=== PATIENT | female | born 1980 | race Caucasian/White ===

== ENCOUNTER 2016-10-10 14:52 | Inpatient (IN) | payer MEDICAID ==
[~2016-10-10] VITALS: Ht 157.5 cm; Wt 83.6 kg
[2016-10-10 15:02] VITALS: Ht 157.5 cm; Wt 83.6 kg
[2016-10-10 15:05] VITALS: BP 122/63; PULSE 75; RESP 16
[2016-10-10] MEDS: LACTATED RINGER'S 1,000 ML IV SCH ×2 (15:28→17:30)
[2016-10-10] MEDS ORDERED: METHYLERGONOVINE 0.2 MG INJ IM PRN ×2 (15:30→22:00)
[2016-10-10] MEDS ORDERED: OXYTOCIN 30 UNITS/LR 500 ML IV PRN ×2 (15:30→22:00)
[2016-10-10] MEDS ORDERED: CEFAZOLIN 2 GM/50 ML (PMX) 50 ML IV SCH (15:30)
[2016-10-10] MEDS ORDERED: MISOPROSTOL 200 MCG TAB PR PRN ×2 (15:30→22:00)
[2016-10-10] MEDS ORDERED: CARBOPROST 250 MCG INJ IM PRN ×2 (15:30→22:00)
[2016-10-10] MEDS ORDERED: OXYTOCIN 30 UNITS/LR 500 ML IV SCH (15:30)
[2016-10-10 16:08] LABS: BASOPHILS % 0.1 % (0.0-2.0); EOSINOPHILS % 0.3 % (0.0-7.0); HEMATOCRIT 36.9 % (37.0-47.0); HEMOGLOBIN 12.4 g/dl (12.0-16.0); LYMPHOCYTES # 1.8 10^3/ul (0.8-2.9); LYMPHOCYTES % 23.7 % (15.0-51.0); MEAN CORPUSCULAR HEMOGLOBIN 31.7 pg (29.0-33.0); MEAN CORPUSCULAR HGB CONC 33.6 g/dl (32.0-37.0); MEAN CORPUSCULAR VOLUME 94.4 fl (82.0-101.0); MEAN PLATELET VOLUME 10.9 fl (7.4-10.4); MONOCYTE # 0.6 10^3/ul (0.3-0.9); MONOCYTES % 7.9 % (0.0-11.0); NEUTROPHILS % 67.2 % (39.0-77.0); PLATELET COUNT 170 10^3/UL (140-415); RED BLOOD COUNT 3.91 10^6/ul (4.20-5.40); RED CELL DISTRIBUTION WIDTH 12.5 % (11.5-14.5); WHITE BLOOD COUNT 7.6 10^3/ul (4.8-10.8)
[2016-10-10] MEDS ORDERED: ONDANSETRON 4 MG INJ IV STA (16:20)
[2016-10-10 16:24] LABS: INR 0.88; PARTIAL THROMBOPLASTIN TIME 26.9 Sec (25.0-35.0); PROTIME 11.9 Sec (12.2-14.2); PT RATIO 0.9
[2016-10-10] MEDS ORDERED: CITRIC ACID/NA CITRATE 30 ML CUP PO ONE (16:30)
--- NOTE | 2016-10-10 17:50 | HP ---
Date/Time of Note Date/Time of Note DATE: 10/10/16 TIME: 17:47 OB - History Hx of Present Chief Complaint: scheduled Estimated Due Date: Oct 17, 2016 : 4 Para: 2 Spontaneous : 1 Therapeutic : 0 Care: Good Care Ultrasounds: Normal mid trimester US Obstetrical Complications: Gestational Diabetes Past Family/Social History * Past Medical, Surgical, Family and Obstetric Histories reviewed from chart. GBS Status: Positive OB Admission Exam Vital Signs Vital Signs Vital Signs Date Time Temp Pulse Resp B/P Pulse Ox O2 Delivery O2 Flow Rate FiO2 10/10/16 15:05 98.9 75 16 122/63 Physical Exam HEENT: WNL Heart: Rhythm Normal Lungs: Clear, Equal Abdomen: WNL Extremities: Normal Reflexes: Normal Last 72 hours Lab Results CBC & BMP 10/10/16 15:28 OB Assessment/Plan Reason for admission: section Plan: Section Other plan: Bilateral Tubal Ligation ANDRES SWEENEY MD Oct 10, 2016 17:50
[2016-10-10] MEDS ORDERED: FENTAnyl 50 MCG/ML VIAL ONE (18:10)
[2016-10-10] MEDS ORDERED: morphine SULFATE/PF (10 MG/10 ML) INJ ONE (18:10)
[2016-10-10] MEDS ORDERED: PHENYLephrine (100 MCG/ML) 5ML SYG ONE (18:10)
[2016-10-10] MEDS ORDERED: OXYTOCIN 10 UNIT INJ ONE (18:10)
[2016-10-10] MEDS ORDERED: METOCLOPRAMIDE 10 MG INJ ONE (18:10)
--- NOTE | 2016-10-10 19:16 | SIPON ---
Date/Time of Note Date/Time of Note DATE: 10/10/16 TIME: 19:13 Operative Report Preoperative Diagnosis 39 weeks with previous c/s x2 Postoperative Diagnosis Same Operation/Procedure Performed Repeat LTC/S and BTL Surgeon: ANDRES SWEENEY MD assistant executive housekeeper: DEYSI ARMENTA MD Anesthesia Type: spinal Estimated Blood Loss: other (500 ml) Transfusion Required: no Specimens right and left Fallopian tubes Grafts/Implants: none Complications: no ANDRES SWEENEY MD Oct 10, 2016 19:15
[2016-10-10] MEDS ORDERED: LABETALOL HCL 20MG INJ IV PRN (20:30)
[2016-10-10] MEDS ORDERED: hydrALAzine 20 MG INJ IV PRN (20:30)
[2016-10-10] MEDS ORDERED: ALBUTEROL 0.083% (NEB) 2.5 MG/3 ML AMP HHN PRN (20:30)
[2016-10-10] MEDS ORDERED: IPRATROPIUM (NEB) 0.5 MG/2.5 ML AMP HHN PRN (20:30)
[2016-10-10] MEDS ORDERED: morphine 4 MG/ML VIAL IV PRN (20:30)
[2016-10-10] MEDS ORDERED: NALBUPHINE HCL (10 MG/1 ML) INJ IV PRN (20:30)
[2016-10-10] MEDS ORDERED: MEPERIDINE 25 MG INJ IV PRN (20:30)
[2016-10-10] MEDS ORDERED: EPHEDrine SULFATE 50 MG/5 ML SYG IV PRN (20:30)
[2016-10-10] MEDS ORDERED: DIPHENHYDRAMINE 50 MG INJ IV PRN ×2 (20:30)
[2016-10-10] MEDS ORDERED: TRIMETHOBENZAMIDE 100 MG/ML VIAL IM PRN ×2 (20:30)
[2016-10-10] MEDS ORDERED: ONDANSETRON 4 MG INJ IV PRN ×2 (20:30)
[2016-10-10] MEDS ORDERED: OXYCODONE/ACETAMINOPHEN (5/325) TAB PO PRN ×2 (20:30)
[2016-10-10] MEDS ORDERED: morphine 2 MG INJ IV PRN (20:30)
[2016-10-10] MEDS ORDERED: HYDROmorphONE (0.2 MG/ML) 10ML SYG IV PRN ×3 (20:30)
[2016-10-10] MEDS ORDERED: NALOXONE (0.4 MG/ML) INJ IV PRN (20:30)
[2016-10-10] MEDS ORDERED: FENTAnyl 50 MCG/ML VIAL IV PRN ×3 (20:30)
[2016-10-10] MEDS: KETOROLAC 30 MG INJ IV PRN (21:16)
[2016-10-10 22:00] VITALS: BP 117/67; PULSE 65; RESP 19
[2016-10-11] VITALS: BP 110/66; PULSE 62; RESP 18
[2016-10-11] MEDS: LACTATED RINGER'S 1,000 ML IV SCH ×3 (00:33→15:06)
[2016-10-11 04:00] VITALS: BP 96/61; PULSE 63; RESP 18
[2016-10-11 07:30] VITALS: BP 128/73; PULSE 69; RESP 18
--- NOTE | 2016-10-11 11:25 | QN ---
Documentation Comment No complaint Afebrile VSS Abdomen soft ND POD #1 Stable Ambulate Advance diet. ANDRES SWEENEY MD Oct 11, 2016 11:24
[2016-10-11 11:47] LABS: BASOPHILS % 0.2 % (0.0-2.0); EOSINOPHILS % 0.3 % (0.0-7.0); HEMATOCRIT 35.1 % (37.0-47.0); HEMOGLOBIN 12.1 g/dl (12.0-16.0); LYMPHOCYTES # 1.3 10^3/ul (0.8-2.9); MEAN CORPUSCULAR HEMOGLOBIN 33.2 pg (29.0-33.0); MEAN CORPUSCULAR HGB CONC 34.5 g/dl (32.0-37.0); MEAN CORPUSCULAR VOLUME 96.4 fl (82.0-101.0); MEAN PLATELET VOLUME 11.3 fl (7.4-10.4); MONOCYTE # 0.7 10^3/ul (0.3-0.9); MONOCYTES % 6.5 % (0.0-11.0); NEUTROPHILS % 79.4 % (39.0-77.0); PLATELET COUNT 163 10^3/UL (140-415); RED BLOOD COUNT 3.64 10^6/ul (4.20-5.40); RED CELL DISTRIBUTION WIDTH 12.4 % (11.5-14.5); WHITE BLOOD COUNT 10.2 10^3/ul (4.8-10.8)
[2016-10-11 12:18] VITALS: BP 126/65; PULSE 78; RESP 18
[2016-10-11 16:00] VITALS: BP 122/91; PULSE 65; RESP 19
[2016-10-11] MEDS: KETOROLAC 30 MG INJ IV PRN (17:51)
[2016-10-11 20:00] VITALS: BP 127/80; PULSE 67; RESP 18
[2016-10-11] MEDS ORDERED: OXYCODONE/ACETAMINOPHEN (5/325) TAB PO PRN ×2 (20:00)
[2016-10-11] MEDS: SENNA/DOCUSATE NA (8.6MG/50MG) TAB PO SCH (21:13)
[2016-10-12 04:00] VITALS: BP 122/68; PULSE 67; RESP 18
--- NOTE | 2016-10-12 04:16 | OPR ---
DATE OF OPERATION: 10/10/2016 PREOPERATIVE DIAGNOSES: 1. at 39 weeks with previous x2. 2. Gestational diabetes. 3. Voluntary sterilization. POSTOPERATIVE DIAGNOSES: 1. at 39 weeks with previous x2. 2. Gestational diabetes. 3. Voluntary sterilization. OPERATION: Repeat low transverse section and bilateral tubal ligation. SURGEON: Pete Murcia MD. HOSIERY BAGGER: Nicole Aldana MD. ANESTHESIA: Spinal. OPERATION PERFORMED: The patient was taken to the operating room and placed on the operating table. After successful spinal anesthesia was given, the patient was placed in supine position. The area was prepared and draped in the usual sterile fashion. Spinal anesthesia was performed and was satisfactory. Using a scalpel, a Pfannenstiel incision was made about 2 fingerbreadths above the symphysis pubis. The incision was carried to the fascia. The fascia was incised and extended bilaterally with Lazo scissors. Two Enrique's were used to separate the fascia from the muscle. The muscle was dissected in the midline down to the peritoneum. The peritoneum was secured with 2 Deena's and incised with Metzenbaum scissors. Using a scalpel, a small transverse incision was made in the lower segment of the uterus. Upon entering the uterine cavity, bandage scissors were inserted to extend the incision bilaterally curved up. The baby was delivered from cephalic presentation. After suctioned and clear of amniotic fluid, the baby was handed off to the team in attendance. Apgars were 9 and 9. The placenta was delivered without difficulty. The uterus was closed with number 1 Monocryl continuous lock. After assuring hemostasis, both ovaries and tubes were inspected. All looked normal. The right fallopian tube was grasped with a Jasson clamp. Using 0 plain suture ligature, a 5-cm segment of the right fallopian tube was doubly ligated. Using Metzenbaum scissors, a portion of the right fallopian tube above the ligated area was excised and sent to pathology. The same procedure was repeated on the left fallopian tube. After assuring hemostasis, the peritoneum was closed with 2-0 Vicryl continuous. The fascia was closed with number 1 Vicryl continuous in 2 segments. Subcutaneous tissue was reapproximated with 2-0 plain. The skin was closed with taiwo. ESTIMATED BLOOD LOSS: Five hundred mL. COUNTS: All counts were correct. Dictated By: Pete Murcia MD /[email or web address]/[email or web address] /Document#: [id number] HOWIE
[2016-10-12] MEDS: IBUPROFEN 800 MG TAB PO PRN ×3 (05:41→23:30)
[2016-10-12 08:00] VITALS: BP 122/62; PULSE 65; RESP 19
[2016-10-12] MEDS: SENNA/DOCUSATE NA (8.6MG/50MG) TAB PO SCH ×2 (09:22→21:43)
[2016-10-12 15:36] VITALS: BP 122/72; PULSE 72; RESP 20
[2016-10-12 20:20] VITALS: BP 122/72; PULSE 81; RESP 18
--- NOTE | 2016-10-12 20:43 | QN ---
Documentation Comment No complaint Afebrile VSS Abdomen soft Stable Continue present care. ANDRES SWEENEY MD Oct 12, 2016 20:43
[2016-10-13 04:00] VITALS: BP 117/67; PULSE 74; RESP 18
[2016-10-13 08:00] VITALS: BP 102/55; PULSE 69; RESP 16
[2016-10-13] MEDS: SENNA/DOCUSATE NA (8.6MG/50MG) TAB PO SCH (08:47)
[2016-10-13] MEDS ORDERED: IBUP800T25 PO (09:25)
--- NOTE | 2016-10-13 09:27 | DS ---
Date/Time of Note Date/Time of Note DATE: 10/13/16 TIME: 09:26 Obstetrical Discharge Record Final Diagnosis Final Diagnosis: Term delivered Vaginal Delivery Obstetrical Delivery: Bilateral Tubal Ligation Section Section: Repeat Complications Gestational Diabetes Condition on Discharge Physical Assessment Voiding: Yes Bowel Movement: Yes Breast: Soft, non-tender Fundus: Firm Abdomen and Incision: Incision intact Calf Tenderness: No Patient Condition: Stable ANDRES SWEENEY MD Oct 13, 2016 09:27
== END 2016-10-13 16:38 | disposition home or self-care (01) | DRG 766 ==
LOC: L-D 14:52 → PP1 21:55
PROVIDERS: ADMIT Obstetrics & Gynecology; ATTEND Obstetrics & Gynecology
PROC: 0UB70ZZ Excision of Bilateral Fallopian Tubes, Open Approach (ICD-10-PCS; 2016-10-10)
PROC: 10D00Z1 Extraction of Products of Conception, Low, Open Approach (ICD-10-PCS; principal; 2016-10-10 17:00)
DX: O34.219 Maternal care for unspecified type scar from previous cesarean delivery (principal); O24.419 Gestational diabetes mellitus in pregnancy, unspecified control; Z30.2 Encounter for sterilization; Z37.0 Single live birth; Z3A.39 39 weeks gestation of pregnancy
CPT/HCPCS: 82947; 85025; 85610; 85730; 86592; 86850; 86900; 86901; 88302; 94760; 99464; J0690; J1885; J2274; J2370; J2405; J2590; J2765; J3010; J7120